=== PATIENT | female | born 1960 | race Caucasian/White ===

== ENCOUNTER 2017-10-11 20:32 | Emergency (ER) | payer OTHER, MEDICAID ==
--- NOTE | 2017-10-11 21:18 | EDPHY ---
H & P Stated Complaint: withdrawal fron ativan and oxycodone and overwhelmed with family issues Time Seen by Provider: 10/11/17 21:18 HPI/ROS: HPI CHIEF COMPLAINT: Anxiety, medication refill HISTORY OF PRESENT ILLNESS: Patient is a 56-year-old female, multiple chronic medical problems, presents emergency room stating that she feels very anxious she has been recently stressed. She denies suicidal or homicidal ideation. She denies wanting to harm herself. She states she ran out of her Ativan as well as Klonopin. Additionally she states that she was discharged to rehab facility recently and they lowered her dose of oxycodone. She presents emergency room stating that she needs a refill her Ativan, Klonopin and oxycodone. She has extensive medical history including bipolar disorder, and PA cardiac arrest, and chronic narcotic dependency. After extensive discussion with her I explained that I am unable to refill her Klonopin, Ativan, oxycodone. I explained that we have an opioid epidemic in this [place] and additionally there are new laws and regulations that prohibit us from prescribing large amounts and prolonged courses of opioids and benzodiazepines. I did explain to her that I am willing to give her a dose of Ativan here to help with her anxiety and additionally a 2 day supply of Ativan. She is comfortable this and agrees for this plan. Additionally recommend she has close follow-up with primary care doctor. She should establish care with a chronic pain physician if she wants to pursue chronic pain management. Past Medical History: History for hypoxic, PEA cardiac arrest, ventricular tachycardia, aspiration pneumonia, acute pulmonary embolism, bipolar disorder, chronic pain dependency, chronic opiate dependency, anxiety disorder, panic attacks, anxiety Past Surgical History: No recent surgery. Social History: Denies daily use drugs alcohol tobacco. Family History: Noncontributory ROS REVIEW OF SYSTEMS: A comprehensive 10 point review of systems is otherwise negative aside from elements mentioned in the history of present illness. Exam Constitutional anxious appearing, triage nursing summary reviewed, vital signs reviewed, awake/alert. Eyes normal conjunctivae and sclera, EOMI, PERRLA. HENT normal inspection, atraumatic, moist mucus membranes, no epistaxis, neck supple/ no meningismus, no raccoon eyes. Respiratory clear to auscultation bilaterally, normal breath sounds, no respiratory distress, no wheezing. Cardiovascular rate normal, regular rhythm, no murmur, no edema, distal pulses normal. Gastrointestinal soft, non-tender, no rebound, no guarding, normal bowel sounds, no distension, no pulsatile mass. Genitourinary no CVA tenderness. Musculoskeletal no midline vertebral tenderness, full range of motion, no calf swelling, no tenderness of extremities, no meningismus, good pulses, neurovascularly intact. Skin pink, warm, & dry, no rash, skin atraumatic. Neurologic awake, alert and oriented x 3, AAOx3, moves all 4 extremities equally, motor intact, sensory intact, CN II-XII intact, normal cerebellar, normal vision, normal speech. Psychiatric anxious Heme/Lymph/Immune no lymphadenopathy. Differential Diagnosis: Includes but is not limited to in a particular order acute anxiety, panic attack, benzo dependency, opiate dependency. Medical Decision Making: Plan for this patient 1 mg p.o. Ativan for anxiety. And I will give her very limited supply of Ativan. She is to follow up with her primary care doctor or chronic pain management. Distally return precautions discussed she understands. Source: Patient - Personal History Current Tetanus/Diphtheria Vaccine: Yes Current Tetanus Diphtheria and Acellular Pertussis (TDAP): Yes Tetanus Vaccine Date: WITHIN 10 YRS - Medical/Surgical History Hx Asthma: No Hx Chronic Respiratory Disease: No Hx Diabetes: No Hx Cardiac Disease: No Hx Renal Disease: No Hx Cirrhosis: No Hx Alcoholism: Yes Hx HIV/AIDS: No Hx Splenectomy or Spleen Trauma: No Other PMH: Chronic pain, bipolar, pelvic hematoma, PE, grave's, restless leg, etoh (sober since 07/28/2014). osteoarthritis,. History of SVT, hypertension. Past surgical history: Appendectomy, knee surgery, abdominal surgery - Social History Smoking Status: Heavy smoker Constitutional: Initial Vital Signs Temperature (C) 36.5 C 10/11/17 20:35 Heart Rate 59 L 10/11/17 20:35 Respiratory Rate 18 10/11/17 20:35 Blood Pressure 164/87 H 10/11/17 20:35 O2 Sat (%) 97 10/11/17 20:35 O2 Delivery Mode Room Air Allergies/Adverse Reactions: Penicillins Allergy (Severe, Verified 10/11/17 20:39) Anaphylaxis Home Medications: Medication Instructions Recorded Ambien 5MG (*) 5 mg PO HS 12/10/15 Ativan 1 mg PO Q6H 12/10/15 Seroquel 300mg (*) 300 mg HS 12/10/15 LORazepam [Ativan] 1 mg PO DAILY #4 tablet 10/11/17 Oxycodone HCl 10/11/17 Departure - Departure Disposition: Home, Routine, Self-Care Clinical Impression: Anxiety Condition: Good Instructions: Anxiety (ED) Additional Instructions: 1. Follow up with her primary care doctor. 2. Return emergency room if you have any worsening symptoms questions or concerns. Referrals: NONE *PRIMARY CARE P,. [Primary Care Provider] - As per Instructions Prescriptions: LORazepam [Ativan] 1 mg PO DAILY #4 tablet
[2017-10-11] MEDS ORDERED: LORazepam 1 MG TAB PO ONE (21:31)
[2017-10-11] MEDS ORDERED: OLANZapine DISINTEGR 10 MG TAB ONE (22:09)
[2017-10-11 22:10] VITALS: BP 135/88
== END 2017-10-11 22:09 | disposition home or self-care (01) ==
DX: F41.9 Anxiety disorder, unspecified (principal); F17.200 Nicotine dependence, unspecified, uncomplicated; I10 Essential (primary) hypertension

== ENCOUNTER 2018-10-14 12:23 | Emergency (ER) | payer OTHER | END 2018-10-14 14:48 | disposition home or self-care (01) ==